=== PATIENT | male | born 1995 | race Two or more races ===

== ENCOUNTER 2019-08-23 09:38 | Emergency (ER) | payer OTHER ==
--- NOTE | 2019-08-23 09:57 | ED Physician Documentation ---
PD HPI MALE - Stated complaint Stated Complaint: BLOOD IN URINE - History obtained from History obtained from: Patient
[2019-08-23 09:59] VITALS: BP 137/83
--- NOTE | 2019-08-23 10:20 | ED Physician Documentation ---
PD HPI GI BLEED - Stated complaint Stated Complaint: BLOOD IN URINE - Chief complaint Chief Complaint: Abd Pain - History obtained from History obtained from: Patient - History of Present Illness Timing - onset: How many days ago (few) Timing - duration: Days (few) Timing - details: Abrupt onset, Intermittant (with bowel movements) Associated symptoms: BRBPR. No: Black/tarry stool Contributing factors: Other (denies rectal injury). No: Sick contact, Bad food, Recent antibiotics, NSAID use Worsened by: Other (blood only noted after BM.) Similar symptoms before: Has not had sx before Review of Systems Constitutional: denies: Fever, Chills GI: denies: Abdominal Pain, Vomiting, Constipation, Diarrhea (had diarrhea for several days about a month ago but has been normal since then.) Skin: denies: Rash, Lesions PD PAST MEDICAL HISTORY - Past Medical History Past Medical History: Yes Respiratory: Asthma - Past Surgical History Past Surgical History: No - Present Medications Home Medications: Ambulatory Orders Medication Instructions Recorded Confirmed Hydrocortisone Acetate [Anucort-Hc] 25 mg RC DAILY #5 supp.rect 08/23/19 - Allergies Allergies/Adverse Reactions: Allergies Allergy/AdvReac Type Severity Reaction Status Date / Time No Known Drug Allergies Allergy Verified 08/23/19 09:59 - Social History Does the pt smoke?: No Smoking Status: Never smoker Does the pt drink ETOH?: Yes Does the pt have substance abuse?: No - Immunizations Immunizations are current?: Yes PD ED PE NORMAL - Vitals Vital signs reviewed: Yes - General General: Alert and oriented X 3, No acute distress, Well developed/nourished - Cardiac Cardiac: RRR, No murmur - Respiratory Respiratory: Clear bilaterally - Abdomen Abdomen: Soft, Non tender, No organomegaly - Male Male : Deferred - Rectal Rectal: Other (normal external. Digital exam felt small bump that is mildly tender at right anterior aspect and possible small cleft felt right anterior c/w small fissure. Small trace of red blood on gloved finger noted after exam. No stool in vault. ) - Back Back: No CVA TTP - Derm Derm: Normal color, Warm and dry Results - Vitals Vitals: Vital Signs - 24 hr 08/23/19 09:55 Temperature 37 C Heart Rate 63 Respiratory 15 Rate Blood Pressure 137/83 H O2 Saturation 100 Oxygen O2 Source Room air PD MEDICAL DECISION MAKING - ED course Complexity details: considered differential (seems c/w fissure or internal hemorrhoid. Can use hemorrhoidal suppositories and recheck if not improved. ), d/w patient Departure - Departure Disposition: 01 Home, Self Care Clinical Impression: Rectal bleeding Hemorrhoid Qualifiers: Hemorrhoid type: unspecified Qualified Code(s): K64.9 - Unspecified hemorrhoids Condition: Stable Record reviewed to determine appropriate education?: Yes Instructions: ED Hemorrhoids, ED Hematochezia Stable [facility]Provider [facility]] Prescriptions: Hydrocortisone Acetate [Anucort-Hc] 25 mg RC DAILY #5 supp.rect Comments: It feels like an internal hemorrhoid. There may be a slight fissure as well (which is a small tear near the opening caused by irritation). These can be treated with a hemorrhoid suppository daily to decrease inflammation in the area and help lubricate so it heals up better. Stay well-hydrated. Recheck if not improved over the next several days, meaning persistent blood in the stool or if it recurs in the near future. If it is not improved well, further evaluation could include a scope in the lower area of the rectum and sigmoid. This can be done in the office by 1 of the surgeons or GI specialist. Return if significant bleeding develops or fevers or pain in the area. Discharge Date/Time: 08/23/19 10:25
== END 2019-08-23 10:25 | disposition home or self-care (01) ==
LOC: ED 09:38
DX: K62.5 Hemorrhage of anus and rectum (principal); K64.9 Unspecified hemorrhoids
CPT/HCPCS: 99283

== ENCOUNTER 2021-05-29 11:15 | Emergency (ER) | payer OTHER ==
[2021-05-29 11:24] VITALS: BP 145/85
--- NOTE | 2021-05-29 11:42 | ED Physician Documentation ---
History of Present Illness - Stated complaint Stated Complaint: BACK PX - Chief complaint Chief Complaint: Back Pain - Additonal information Additional information: 26-year-old male presents the emergency department for evaluation of acute low back pain that began 1 week ago. 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 He felt that if he stood too fast his back would buckle. He denies any saddle anesthesia, loss of bowel or bladder function. No weakness in his legs. No history of similar in the past. He has tried ibuprofen and Tylenol with some relief. Over the last week the pain had begun to improve until today. Denies dysuria or hematuria. Review of Systems Constitutional: denies: Fever, Chills Eyes: reports: Reviewed and negative Nose: reports: Reviewed and negative Throat: reports: Reviewed and negative Cardiac: reports: Reviewed and negative Respiratory: reports: Reviewed and negative GI: reports: Reviewed and negative : reports: Reviewed and negative Skin: reports: Reviewed and negative Musculoskeletal: reports: Back pain Neurologic: reports: Reviewed and negative PD PAST MEDICAL HISTORY - Past Medical History Respiratory: Asthma - Past Surgical History Past Surgical History: No - Present Medications Home Medications: Ambulatory Orders Medication Instructions Recorded Confirmed Ibuprofen [Motrin] 600 mg PO Q6H PRN #30 tab 05/29/21 methocarbamoL [Methocarbamol] 750 mg PO BID #20 tablet 05/29/21 - Allergies Allergies/Adverse Reactions: Allergies Allergy/AdvReac Type Severity Reaction Status Date / Time No Known Drug Allergies Allergy Verified 05/29/21 11:24 - Social History Does the pt smoke?: No Smoking Status: Never smoker Does the pt drink ETOH?: Yes Does the pt have substance abuse?: No - Immunizations Immunizations are current?: Yes PD ED PE NORMAL - General General: Alert and oriented X 3, No acute distress - HEENT HEENT: PERRL - Cardiac Cardiac: RRR, No murmur - Respiratory Respiratory: Clear bilaterally - Abdomen Abdomen: Normal bowel sounds, Soft, Non tender, Non distended - Back Back: No CVA TTP, No spinal TTP, Other (Mild tenderness across the bilateral lower lumbar spine paraspinous muscles. Nearly full range of motion of the lower lumbar spine. Motor strength 5 of 5 bilateral lower extremities 2+ patellar reflexes bilaterally. Normal gait. 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 Pain has waxed and waned in its course but acutely worse today. There are no red flags on exam and a relatively reassuring exam. Patient is advised ibuprofen and as needed methocarbamol. Advised to follow-up with [facility]. May benefit from referral to physical therapy. Departure - Departure Disposition: 01 Home, Self Care Clinical Impression: Low back pain Qualifiers: Chronicity: acute Back pain laterality: bilateral Sciatica presence: without sciatica Qualified Code(s): M54.5 - Low back pain Condition: Stable Record reviewed to determine appropriate education?: Yes Instructions: ED Back Care Tips, ED Low Back Pain Injury Prescriptions: methocarbamoL [Methocarbamol] 750 mg PO BID #20 tablet Ibuprofen [Motrin] 600 mg PO Q6H PRN #30 tab PRN Reason: Pain Comments: Bj please follow-up with [facility]. You may benefit from referral to physical therapy. Please fill the prescriptions for the ibuprofen take 2-3 times a day as directed with food. Also recommended a limited amount of a muscle relaxer. If at any point you feel that your symptoms are worsening, you lose control your bowel or bladder function, have numbness in your genital area then please return immediately to the ER.
== END 2021-05-29 11:50 | disposition home or self-care (01) ==
LOC: ED 11:15
DX: M54.5 Low back pain (principal)
CPT/HCPCS: 99282; 99284